=== PATIENT | female | born 1980 | race Caucasian/White ===

== ENCOUNTER 2019-04-13 07:12 | Inpatient (IN) | payer BC ==
[2019-05-06] MEDS ORDERED: Bupivacaine 0.25% HCL 30 ML VIAL ONE (09:00)
[2019-05-06] MEDS ORDERED: Bupivacaine PF 0.5% 30 ML VIAL ONE (09:00)
[2019-05-06] MEDS ORDERED: Butorphanol Tartrate 1 MG/ML VIAL SLOW IVP PRN (22:25)
[2019-05-06] MEDS ORDERED: HYDROcodone/Acetaminophen 5/325 mg Tablet PO PRN ×2 (22:25)
[2019-05-06] MEDS ORDERED: Lidocaine 1% (PF) 30 ML VIAL SC PRN (22:25)
[2019-05-06] MEDS ORDERED: Ibuprofen 800 MG TAB PO PRN (22:25)
[2019-05-06] MEDS ORDERED: NS w/ Oxytocin 10 units 500 ML IV SCH ×2 (22:25)
[2019-05-06] MEDS ORDERED: hydrALAZINE 20 MG/ML VIAL SLOW IVP PRN (22:25)
[2019-05-06] MEDS ORDERED: Ondansetron PF 4 MG/2 ML Vial IVP PRN (22:25)
[2019-05-06] MEDS ORDERED: Promethazine HCl 25 MG/ML VIAL IM PRN (22:25)
[2019-05-06] MEDS ORDERED: NS / Oxytocin 40 units/1000ml 1,000 ML IV PRN (22:25)
[2019-05-06 22:38] VITALS: BMI 24.5
[2019-05-06 22:47] LABS: Mean Corpuscular HGB CONC 35.9 g/dL (32.0-36.0); Mean Corpuscular Hemoglobin 33.7 pg (27.0-31.0); Mean Corpuscular Volume 93.8 fL (78.0-98.0); Mean Platelet Volume 8.1 fL (7.4-10.4); Platelet Count 244 thou/uL (130-400); RBC Distribution Width 16.1 % (11.5-14.5); Red Blood Cell (RBC) Count 3.58 mill/uL (4.20-5.40); White Blood Cell (WBC) Count 8.5 thou/uL (4.8-10.8)
[2019-05-06] MEDS: Misoprostol 100 MCG TAB VAG SCH (23:07)
[2019-05-06] MEDS: Lactated Ringer's 1,000 ML IV SCH (23:07)
[2019-05-06 23:28] LABS: HBSAg Index 0.13 S/CO (0-0.99); Hep B Surf Ag Non-Reactive S/CO (NonReactive); Syphilis Antibody Nonreactive (Nonreactive); Syphilis Antibody Index 0.04 S/CO (<1.00 Non-Reactive)
[2019-05-07] MEDS: Lactated Ringer's 1,000 ML IV SCH ×3 (05:04→21:11)
[2019-05-07] MEDS ORDERED: Fentanyl 4 mcg/Bup 0.1% Cadd 100 ML ONE (06:59)
[2019-05-07] MEDS: Misoprostol 100 MCG TAB VAG SCH ×4 (07:35→16:32)
[2019-05-07] MEDS ORDERED: Ondansetron PF 4 MG/2 ML Vial IVP PRN ×3 (07:55→16:35)
[2019-05-07] MEDS ORDERED: Acetaminophen 325 MG TAB PO PRN ×2 (07:55→16:35)
[2019-05-07] MEDS ORDERED: Promethazine HCl 25 MG/ML VIAL IM PRN ×2 (07:55→15:31)
[2019-05-07] MEDS ORDERED: Naloxone HCl 0.4 mg/ml Vial IVP PRN ×4 (07:55→15:31)
[2019-05-07] MEDS ORDERED: ePHEDrine/0.9% NaCl/PF SYRINGE 50 mg/10 ml SLOW IVP PRN (07:55)
[2019-05-07] MEDS ORDERED: diphenhydrAMINE 50 MG/ML VIAL IVP PRN ×2 (07:55→15:31)
[2019-05-07] MEDS ORDERED: Lactated Ringer's 500 ML IV PRN (07:55)
[2019-05-07] MEDS ORDERED: Fentanyl 4 mcg/Bupivacaine 0.1% Cassette 100 ML EPIDURAL SCH (08:00)
[2019-05-07] MEDS ORDERED: Communication Order-Pharmacy FS SCH ×2 (08:00→15:45)
--- NOTE | 2019-05-07 12:32 | PDOC.LDPN ---
Labor & Delivery Progress Note - Subjective Subjective: painful contractions - Objective Vital signs reviewed and normal: yes General: breathing through contractions Dilation: 10 Effacement: 100% Station: 1+ FHT: category 1 [place] contractions every: 2 - Assessment (1) 40 weeks gestation of Code(s): Z3A.40 - 40 WEEKS GESTATION OF Current Visit: Yes Status : Acute Plan: continue plan of care -: A/P: Patient has transitioned to the 2nd stage. Was pushing for about an hour and then rested for 30mins. Pt discouraged and uncomfortable during first hour of pushing and pushing efforts not effective. Exam with no concern for CPD, adequate space noted. Restarted pushing and coached/encouraged patient. FHT reassuring.
[2019-05-07] MEDS ORDERED: Bicitra 30 ML UDCUP ONE (14:17)
[2019-05-07] MEDS ORDERED: Azithromycin 500 MG VIAL ONE (14:18)
--- NOTE | 2019-05-07 14:19 | PDOC.LDPN ---
Labor & Delivery Progress Note - Subjective Subjective: painful contractions - Objective General: breathing through contractions Dilation: 10 Effacement: 100% Station: 1+ FHT: category 1 - Assessment (1) 40 weeks gestation of Code(s): Z3A.40 - 40 WEEKS GESTATION OF Current Visit: Yes Status : Acute -: No descent with approx of 3hrs of pushing. Discussed indication for 1CS.
[2019-05-07] MEDS ORDERED: CEFAZOLIN 2 GM in Premix Bag 1 BAG IVPB ONE (14:30)
[2019-05-07] MEDS ORDERED: Bicitra 30 ML UDCUP PO SCH (14:30)
[2019-05-07] MEDS ORDERED: Fentanyl 100 MCG/2 ML VIAL ONE (14:42)
[2019-05-07] MEDS ORDERED: PROPOFOL 0 ML ONE (14:43)
[2019-05-07] MEDS ORDERED: Ondansetron PF 4 MG/2 ML Vial ONE ×2 (14:43→18:09)
[2019-05-07] MEDS ORDERED: Oxytocin 10 UNITS/ML VIAL ONE (14:43)
[2019-05-07] MEDS ORDERED: Succinylcholine Chloride 20 MG/ML 10 ml SYRINGE FS ONE (14:43)
[2019-05-07] MEDS ORDERED: Dexamethasone 4 mg/ml Vial ONE (14:43)
[2019-05-07] MEDS ORDERED: Ketorolac Tromethamine 30 MG/ML VIAL ONE ×2 (14:43→18:09)
[2019-05-07] MEDS ORDERED: ePHEDrine/0.9% NaCl/PF SYRINGE 50 mg/10 ml ONE (14:44)
[2019-05-07] MEDS ORDERED: PHENYLEPHRINE-NS 100 MCG/ML 10 ML SYRINGE ONE (14:45)
[2019-05-07] MEDS ORDERED: MORPHINE 5 MG/10 ML PF VIAL ONE (14:45)
[2019-05-07] MEDS ORDERED: Methylergonovine 0.2 MG/ML VIAL ONE ×2 (15:03→15:17)
--- NOTE | 2019-05-07 15:18 | PDOC.EVN ---
Event Note - Event Note Event Note: LIYA Thrasher 05/07/19 1515 CS Assist note Asked by Dr Canales to assist with this primary LTCS for prolonged third stage of labor, failure to descend. I was scrubbed and particpated from skin incision until Fascial closure. Procedure: Primary LTCS Surgeon: Parker Assist:Raza Complications: none Findings: Vigorous female; mec stained placenta and fluid; apgars 9/9 NICU team present for delivery Counts correct No evidence PPH
--- NOTE | 2019-05-07 15:23 | PDOC.OPDEL ---
OB Operative/Delivery Note Delivery Dr/Surgeon: Parker Assist: Raza Pre-Delivery Diagnosis: other (failure to descend) Weeks gestation: 40 - Findings A Sex: female - 1 min: 9 - 5 min: 9 - Additional Findings/Plan Placenta delivered: spontaneous Repaired Obstetrical Laceration: none findings: low transverse hysterotomy without extension, normal uterus, normal tubes, normal ovaries Compilations/Other Findings: asynclitic lie noted Post delivery plan: routine recovery
[2019-05-07] MEDS ORDERED: Ketorolac Tromethamine 30 MG/ML VIAL IVP PRN (15:31)
[2019-05-07] MEDS ORDERED: HYDROmorphone 2 MG/ML VIAL SLOW IVP PRN (15:31)
[2019-05-07] MEDS ORDERED: Meperidine HCl/PF 25 MG/ML VIAL SLOW IVP PRN (15:31)
[2019-05-07] MEDS ORDERED: L&D-Morphine 4 MG/ML VIAL SLOW IVP PRN (15:31)
[2019-05-07] MEDS ORDERED: Promethazine HCl 25 MG SUPP PR PRN (15:31)
[2019-05-07] MEDS ORDERED: Ondansetron HCl/PF 4 MG/2 ML Vial IVP PRN (15:31)
[2019-05-07] MEDS ORDERED: hydrALAZINE 20 MG/ML VIAL SLOW IVP PRN (16:35)
[2019-05-07] MEDS ORDERED: Bisacodyl 10 MG SUPP PR PRN (16:35)
[2019-05-07] MEDS ORDERED: Lanolin Ointment 7 GM TUBE TOP PRN (16:35)
[2019-05-07] MEDS ORDERED: Simethicone Chewable 80 MG TAB PO PRN (16:35)
[2019-05-07] MEDS ORDERED: diphenhydrAMINE 25 MG CAP PO PRN (16:35)
[2019-05-07] MEDS ORDERED: Methylergonovine 0.2 MG/ML VIAL IM SCH (17:00)
[2019-05-07] MEDS ORDERED: Dexamethasone 20 MG/5 ML VIAL ONE (18:09)
[2019-05-07] MEDS: Docusate Calcium (SURFAK) 240 MG CAP PO SCH (22:08)
[2019-05-07] MEDS: Ferrous Sulfate 325 MG TAB PO SCH (22:08)
--- NOTE | 2019-05-07 22:26 | OP ---
DATE OF PROCEDURE: 05/07/2019 PREOPERATIVE DIAGNOSES: 1. 38-year-old G4, P0-0-3-0, at 40 weeks and 1 day. 2. Failure to descend with 3 hours of pushing efforts. POSTOPERATIVE DIAGNOSIS: Status post section. PROCEDURE PERFORMED: Primary low-transverse section without extension. SEAMLESS TUBE DRAWER: Hari Person MD ANESTHESIA: Epidural. COMPLICATIONS: None. ESTIMATED BLOOD LOSS: Approximately 500 mL. QBL: Pending. OPERATIVE FINDINGS: 1. Low-transverse hysterotomy without extension. Normal-appearing uterus, tubes, and ovaries bilaterally. 2. Uterine atony of the lower uterine segment, improved with IV Pitocin and methargen. 3. Vigorous female infant, Apgars 9 and 9. Particulate meconium noted at delivery. Weight pending at the time of this dictation. 4. Hemostatic surgical sites. INDICATIONS FOR PROCEDURE: Ms. Gretel Kearns was admitted yesterday evening with a favorable cervix for induction of labor. She underwent induction of labor and her active labor progressed quickly from 6 cm to complete. She began pushing at 10 cm and +1 station. She was evaluated multiple times during her pushing efforts, pushing in different positions with minimal to no descent noted. The patient was counseled for the indication for primary section and agreed with the plan of care. DESCRIPTION OF PROCEDURE: The patient was taken back to the OR with IV fluids running. A Snow catheter that was previously placed and epidural catheter that was previously placed. She was placed in dorsal supine position with a left lateral tilt. The abdomen was then prepped and draped in normal fashion for section. The surgeons were gowned and gloved. Anesthesia was tested and found to be adequate. A Pfannenstiel skin incision was made with a scalpel. The skin incision was carried down through the subcutaneous tissue to the fascia. Once the fascia was reached, it was incised in the midline and extended superolaterally using curved Pena scissors. David clamps were placed on the superior border of the fascia, which were sharply and bluntly dissected off the rectus abdominis muscles in a cephalad direction. This was repeated with the David clamps with the inferior border of the fascia, dissected down towards the level of the pubic symphysis. The rectus muscles and peritoneum were bluntly and entered in the midline. The peritoneum was bluntly stretched. An Ashish O retractor was placed in the peritoneal cavity for retraction, visualization, and protection of the wound. Bladder reflection was dissected away from the planned hysterotomy site. A low-transverse hysterotomy was made with a scalpel. The uterus was bluntly entered and stretched laterally. Particulate meconium was noted. The infant was delivered without difficulty through the hysterotomy. The nose and mouth were suctioned. The cord was doubly clamped and cut. Examination of the 's head with some asymmetric molding consistent with an asynclitic lie. The was handed off to special care nurses. Cord blood was collected. The placenta was delivered. The uterus was exteriorized, massaged to firm and cleared of clot and debris. The uterus was returned to the abdominal cavity, was noted to be atonic and Methergine was ordered. The hysterotomy was closed with a running locking suture of 4-0 Monocryl. A second imbricating layer was placed with Monocryl suture in a running fashion for christian of uterine anatomy. The hysterotomy was then copiously irrigated and suctioned dry after the hysterotomy closure. It was inspected and no areas of bleeding were noted. The Ashish O retractor was removed from the abdominal cavity. The uterus palpated firm. The rectus muscle was examined and no areas of bleeding were noted. The fascia was reapproximated with PDS suture from corner to corner in a running fashion. The subcutaneous tissue was then irrigated and dry. Any small areas of bleeding were controlled with Bovie cauterization. The subcutaneous tissue was reapproximated with plain gut suture. The skin was closed with 4-0 Monocryl and dressed with Dermabond dressing. The counts were correct x2. Of note, the patient received Ancef and azithromycin prior to the incision. She tolerated the procedure well. There were no complications. Job ID: [id number]
[2019-05-08] MEDS ORDERED: HYDROcodone/Acetaminophen 5/325 mg Tablet PO PRN (03:45)
[2019-05-08 05:54] LABS: Hemoglobin 10.5 g/dL (12.0-16.0); Mean Corpuscular HGB CONC 35.3 g/dL (32.0-36.0); Mean Corpuscular Volume 96.4 fL (78.0-98.0); Mean Platelet Volume 7.6 fL (7.4-10.4); Platelet Count 207 thou/uL (130-400); Red Blood Cell (RBC) Count 3.09 mill/uL (4.20-5.40)
[2019-05-08] MEDS: Ferrous Sulfate 325 MG TAB PO SCH (07:41)
[2019-05-08] MEDS ORDERED: Adacel (T-DAP) 0.5 ML SYRINGE IM ONE (09:00)
--- NOTE | 2019-05-08 09:19 | PDOC.PP ---
Post Progress Note Post Day #: 1 Subjective: sore in abdominal muscles put pain well controlled, tolerating diet and ambulating PO intake tolerated: yes Flatus: yes Ambulation: yes Vital Signs (12 hours) Temp Pulse Resp BP Pulse Ox 05/08/19 08:06 98.5 F 61 20 81/50 L 96 05/08/19 03:49 98.1 F 62 18 92/58 L 97 05/08/19 00:50 98.8 F 92 16 105/58 L 96 Weight Weight 143 lb - Physical Examination General: NAD Respiratory: non-labored breathing Abdominal: no distention, appropriately TTP Fundus firm & at: below umb Extremities: negative homans (B) Skin: CS incision dry & intact, no rash Neurological: no gross focal deficits Psychiatric: A&Ox3, normal affect Result Diagrams: 05/08/19 05:39 Additional Labs: Post Labs Blood Type O POSITIVE 05/06/19 22:41 Hep Bs Antigen Non-Reactive S/CO (NonReactive) 05/06/19 22:41 (1) 40 weeks gestation of Code(s): Z3A.40 - 40 WEEKS GESTATION OF Status: Acute - Assessment/Plan POD1 doing well, no concerns, advancing orders.
[2019-05-08] MEDS: Docusate Calcium (SURFAK) 240 MG CAP PO SCH ×2 (09:47→21:27)
[2019-05-08] MEDS: Prenatal Vitamin 1 TAB PO SCH (09:47)
[2019-05-08] MEDS: HYDROcodone/Acetaminophen 5/325 mg Tablet PO PRN ×3 (09:48→18:13)
[2019-05-08] MEDS ORDERED: Sodium Chloride 0.9% 10 ML ONE ×2 (11:48→12:11)
[2019-05-08] MEDS: Naloxone HCl 0.4 mg/ml Vial IV PRN ×2 (11:52→12:11)
[2019-05-08] MEDS: Ibuprofen 800 MG TAB PO SCH ×2 (13:46→21:27)
[2019-05-09] MEDS: HYDROcodone/Acetaminophen 5/325 mg Tablet PO PRN ×2 (00:08→22:33)
[2019-05-09] MEDS: Ferrous Sulfate 325 MG TAB PO SCH ×3 (00:54→23:06)
[2019-05-09] MEDS: Ibuprofen 800 MG TAB PO SCH ×3 (05:51→22:05)
--- NOTE | 2019-05-09 08:07 | PDOC.PP ---
Post Progress Note Post Day #: 2 Subjective: doing well, no concerns, latching okay, would like to stay another day PO intake tolerated: yes Flatus: yes Ambulation: yes Vital Signs (12 hours) Temp Pulse Resp BP 05/09/19 04:18 98.2 F 72 16 90/53 L 05/09/19 00:00 98.1 F 73 16 96/53 L Weight Weight 143 lb - Physical Examination General: NAD Respiratory: non-labored breathing Abdominal: no distention Skin: CS incision dry & intact Neurological: no gross focal deficits Psychiatric: A&Ox3, normal affect Result Diagrams: 05/08/19 05:39 Additional Labs: Post Labs Blood Type O POSITIVE 05/06/19 22:41 Hep Bs Antigen Non-Reactive S/CO (NonReactive) 05/06/19 22:41 (1) 40 weeks gestation of Code(s): Z3A.40 - 40 WEEKS GESTATION OF Status: Acute - Assessment/Plan POD2 doing well, sp CS for failed 2nd stage. Post op goals met, desires DC home tomorrow.
[2019-05-09] MEDS: Prenatal Vitamin 1 TAB PO SCH (08:18)
[2019-05-09] MEDS: Docusate Calcium (SURFAK) 240 MG CAP PO SCH ×2 (08:18→22:05)
[2019-05-10] MEDS: Ibuprofen 800 MG TAB PO SCH ×2 (05:22→13:30)
--- NOTE | 2019-05-10 05:52 | PDOC.PP ---
Post Progress Note Post Day #: 3 Subjective: 3 PO intake tolerated: yes Flatus: yes Ambulation: yes Vital Signs (12 hours) Temp Pulse Resp BP BP Pulse Ox 05/10/19 05:20 98.2 F 75 16 118/59 L 05/09/19 20:56 98.1 F 86 12 107/56 L 100 Weight Weight 143 lb - Physical Examination General: NAD Cardiovascular: no m/r/g Respiratory: clear to auscultation bilaterally Abdominal: + bowel sounds, lochia, no distention, appropriately TTP Extremities: negative homans (B) Skin: CS incision dry & intact (C/D/I...sutured) Neurological: no gross focal deficits Psychiatric: A&Ox3, normal affect Result Diagrams: 05/08/19 05:39 Additional Labs: Post Labs Blood Type O POSITIVE 05/06/19 22:41 Hep Bs Antigen Non-Reactive S/CO (NonReactive) 05/06/19 22:41 (1) delivery delivered Code(s): O82 - ENCOUNTER FOR DELIVERY WITHOUT INDICATION Status: Acute - Assessment/Plan POD3...Doing well. Incision C/D/I. We will DC home and follow up in 2 weeks. She will stay for B&B as baby weight being checked.
[2019-05-10] MEDS: Ferrous Sulfate 325 MG TAB PO SCH (09:08)
[2019-05-10] MEDS: Docusate Calcium (SURFAK) 240 MG CAP PO SCH (09:09)
[2019-05-10] MEDS: Prenatal Vitamin 1 TAB PO SCH (09:09)
[2019-05-10 11:55] VITALS: BP 110/69; TEMP 97.6
== END 2019-05-10 17:25 | disposition home or self-care (01) | DRG 788 ==
LOC: EDSTATUS 07:12 → L&D 05-06 21:36 → 3SW 05-07 17:43
PROVIDERS: ADMIT Obstetrics & Gynecology; ATTEND Obstetrics & Gynecology
PROC: 10D00Z1 Extraction of Products of Conception, Low, Open Approach (ICD-10-PCS; principal; 2019-05-07)
DX: O62.1 Secondary uterine inertia (principal); Z37.0 Single live birth; Z3A.40 40 weeks gestation of pregnancy
CPT/HCPCS: 36415; 85027; 86780; 86850; 86900; 86901; 87340; J0456; J0690; J1100; J1885; J2001; J2210; J2274; J2310; J2405; J2590; J2704; J3010; S0020